=== PATIENT | female | born 2000 | race Caucasian/White ===

== ENCOUNTER 2022-03-22 00:29 | Emergency (ER) | payer OTHER ==
--- NOTE | 2022-03-22 00:58 | ED Abdominal Pain ---
General Stated Complaint: 13 WKS PREG,CRAMPING Source of Information: Patient Exam Limitations: No Limitations History of Present Illness Date Seen by Provider: Mar 22, 2022 Time Seen by Provider: 00:42 Initial Comments 21yoF that is 13 WGA coming in due to lower abdominal cramping. Started roughly 4 hours ago, constant, mild, took Tylenol which helped. No nausea, vomiting, diarrhea, fever, chills, weakness, numbness, chest pain, shortness of breath, dysuria, or any other concerns associated with it. Has had a normal thus far with normal ultrasound and visits. Otherwise denying any other acute complaints. Denies any vaginal bleeding, loss of fluid like her water broke, and has not felt baby move yet. Allergies and Home Medications Allergies Coded Allergies: No Known Drug Allergies (Unverified , 03/22/22) Patient Home Medication List Home Medication List Reviewed: Yes Review of Systems Review of Systems Constitutional: No fever EENTM: No Symptoms Reported Respiratory: No Symptoms Reported Cardiovascular: No Symptoms Reported Gastrointestinal: See HPI Genitourinary: No Symptoms Reported Musculoskeletal: no symptoms reported Skin: no symptoms reported Psychiatric/Neurological: No Symptoms Reported Endocrine: No Symptoms Reported Hematologic/Lymphatic: No Symptoms Reported All Other Systems Reviewed Negative Unless Noted: Yes Past Uoxbocf-Wjwmdy-Vsbidd Hx Patient Social History Tobacco Use?: No Substance use?: No Alcohol Use?: No Past Medical History Surgeries: No Physical Exam Vital Signs Vital Signs - First Documented 03/22/22 00:50 Temp 36.7 Pulse 87 Resp 16 B/P (MAP) 126/75 (92) Pulse Ox 98 O2 Delivery Room Air Capillary Refill : Height/Weight/BMI Height: '" Weight: lbs. oz. kg; BMI Method: General Appearance: WD/WN, no apparent distress HEENT: PERRL/EOMI, normal ENT inspection, pharynx normal Neck: non-tender, full range of motion, supple, normal inspection Respiratory: chest non-tender, lungs clear, normal breath sounds, no respiratory distress, no accessory muscle use Cardiovascular: regular rate, rhythm, no edema, no murmur Gastrointestinal: normal bowel sounds, non tender, soft; No distended, No gua rding, No rebound, No tenderness Extremities: normal range of motion, non-tender, normal inspection, no pedal edema, no calf tenderness, normal capillary refill Back: normal inspection, no CVA tenderness Neurologic/Psychiatric: no motor/sensory deficits, alert, normal mood/affect Skin: normal color, warm/dry Lymphatic: no adenopathy Progress/Results/Core Measures Results/Orders Lab Results Laboratory Tests Test 03/22/22 00:55 Range/Units Urine Color YELLOW Urine Clarity CLEAR Urine pH 6.0 5-9 Urine Specific [place] 1.025 H 1.016-1.022 Urine Protein NEGATIVE NEGATIVE Urine Glucose (UA) NEGATIVE NEGATIVE Urine Ketones NEGATIVE NEGATIVE Urine Nitrite NEGATIVE NEGATIVE Urine Bilirubin NEGATIVE NEGATIVE Urine Urobilinogen 0.2 < = 1.0 MG/DL Urine Leukocyte Esterase TRACE H NEGATIVE Urine RBC (Auto) NEGATIVE NEGATIVE Urine RBC NONE /HPF Urine WBC 5-10 H /HPF Urine Squamous Epithelial Cells 25-50 H /HPF Urine Crystals NONE /LPF Urine Bacteria LARGE H /HPF Urine Casts NONE /LPF Urine Mucus MODERATE H /LPF Urine Culture Indicated YES My Orders Orders - MARY WIGGINS MD Ua Culture If Indicated (03/22/22 00:56) Urine Culture (03/22/22 00:55) Vital Signs/I&O 03/22/22 00:50 Temp 36.7 Pulse 87 Resp 16 B/P (MAP) 126/75 (92) Pulse Ox 98 O2 Delivery Room Air Progress Progress Note : Progress Note 21-year-old female coming in due to lower abdominal cramping that is mild during early . ABCs were intact and vitals were stable on presentation. Physical exam reassuring including a soft and nontender abdomen. I did a [id number] ultrasound showing heart rate around 160 with movement. Symptoms have been very mild and improved with Tylenol. Urinalysis with concerns for infection. We will treat her with Macrobid. I believe she stable for discharge with outpatient follow-up. She was sent home with strict return precautions Departure Impression Primary Impression: Urinary tract infection Qualified Codes: N30.00 - Acute cystitis without hematuria Additional Impression: Qualified Codes: Z3A.13 - 13 weeks gestation of Disposition: HOME, SELF-CARE Condition: Stable Departure-Patient Inst. Decision time for Depature: 01:55 Referrals: YOON NICHOLS MD (PCP) Primary Care Physician Patient Instructions: Urinary Tract Infection, Adult (DC) Add. Discharge Instructions: Your baby did have a normal heart rate today. Continue to take Tylenol as needed for cramping and drink plenty of fluids. Monitor how you are feeling, and call your OB as soon as able to discuss your symptoms. You do have what appears to be a urinary tract infection which can also make the symptoms occur. You will be on antibiotics for the next 5 days. Scripts Nitrofurantoin Monohyd/M-Cryst (Macrobid 100 mg Capsule) 100 Mg Capsule 1 TAB PO BID for 5 Days, #10 CAP Prov: MARY WIGGINS MD 03/22/22 Work/School Note: Work Release Form Date Seen in the Emergency Department: Mar 22, 2022 Return to Work: Mar 23, 2022 Restrictions: No Restrictions MARY WIGGINS MD Mar 22, 2022 00:58
[2022-03-22 01:20] LABS: BILIRUBIN,URINE NEGATIVE (NEGATIVE); CLARITY,URINE CLEAR; COLOR,URINE YELLOW; GLUCOSE, URINE (UA) NEGATIVE (NEGATIVE); KETONES,URINE NEGATIVE (NEGATIVE); LEUKOCYTE ESTERASE ,URINE TRACE (NEGATIVE); NITRITE,URINE NEGATIVE (NEGATIVE); PROTEIN,URINE NEGATIVE (NEGATIVE)
[2022-03-22 01:42] LABS: BACTERIA,URINE LARGE /HPF; SQUAMOUS EPITHELIAL CELL,UR 25-50 /HPF
[2022-03-22] MEDS ORDERED: NITR-65 PO (01:56)
[2022-03-22] MEDS ORDERED: NITROFURANTOIN 100 MG (MACROBID) CAPSULE PO ONE (02:00)
[2022-03-22 02:03] VITALS: BP 126/75
== END 2022-03-22 02:03 | disposition home or self-care (01) ==
LOC: ER 00:35
DX: O23.41 Unspecified infection of urinary tract in pregnancy, first trimester (principal); N39.0 Urinary tract infection, site not specified; Z3A.13 13 weeks gestation of pregnancy
CPT/HCPCS: 81000; 84703; 87088